=== PATIENT | male | born 1970 | race Caucasian/White ===

== ENCOUNTER 2016-07-01 15:07 | Emergency (ER) | payer OTHER ==
--- NOTE | ~2016-07-01 | CR93 ---
[facility] A Service of [facility] RADIOLOGY TEXT RESULTS PATIENT: HOLLAND RITTER LOCATION: SED : 74 UNIT #: [id number] AGE: [address]: Tracy Fine APRN SEX: M ORDER DR: [id number] [address] [address] [id number] E MR#: [id number] Acc #: [id number] NAME: HOLLAND RITTER : 1970 SEX: M STUDY DATE/TIME: 07/01/2016 14:57 UNIT: SED ROOM: STUDY DESCRIPTION: CR Elbow Min 3 Views Lt Attending Physician: Tracy Fine A.P.R.N. Ordering Physician: Tracy Min A.P.R.N. Primary Care Physician: No Primary Care Physician MEDICAL IMAGING REPORT This report is preliminary unless electronic signature is present. EXAM Left elbow, 3 views. HISTORY Fell last night, hitting curb with elbow. FINDINGS 3 views are submitted. The exam is limited by patient's inability to position the arm. There is a fracture through the olecranon. It passes transversely. It is distracted by 5 mm. There appears to be an associated fracture through the volar aspect of the olecranon, and this appears to be comminuted and intraarticular. In addition, the patient has a fracture of the radial head. There is a large joint effusion. Distal humerus appears intact. CONCLUSION Comminuted intraarticular fracture of the olecranon. Fracture of the radial head. Large joint effusion. Dictated by... Brown Henry M.D. THIS IS AN ELECTRONICALLY VERIFIED REPORT Brown Henry M.D. at 07/03/2016 12:00 PM MICHAEL/jayy TD: 07/01/2016 17:17 JOB #: [id number] [facility] A Service of [facility] RADIOLOGY TEXT RESULTS PATIENT: HOLLAND RITTER LOCATION: SED : 74 UNIT #: [id number] AGE: [address]: Tracy Fine APRN SEX: M ORDER DR: MEDICAL IMAGING REPORT Page 1 of 1
[~2016-07-01 15:07] MED LIST: FLEXERIL PO; KETOPROFEN PO; KLONOPIN PO; LORTAB 10/500 T1 TAB PO; NORCO 5/325 TAB1 TAB PO; PERCOCET5/325 PO
[2016-07-04] MEDS ORDERED: NO MEDICATIONS (15:11)
[2016-07-09] MEDS ORDERED: PERCOCET 7.5-31 EACH PO (09:07)
== END 2016-07-01 17:43 | disposition home or self-care (01) ==
LOC: SED 15:07
DX: S52.032A Displaced fracture of olecranon process with intraarticular extension of left ulna, initial encounter for closed fracture (principal); S52.122A Displaced fracture of head of left radius, initial encounter for closed fracture; F17.210 Nicotine dependence, cigarettes, uncomplicated; W18.39XA Other fall on same level, initial encounter
CPT/HCPCS: 29105; 29515; 73080; 99283

== ENCOUNTER → 2016-07-07 | Outpatient (CLI) | payer OTHER ==
[~2016-07-07] MED LIST changes: +NO MEDICATIONS; +PERCOCET 7.5-31 EACH PO
--- NOTE | ~2016-07-07 | CT127 ---
[facility] A Service of [facility] RADIOLOGY TEXT RESULTS PATIENT: HOLLAND RITTER [facility] UNIT #: [id number] AGE: [address]: Julio Rivera MD SEX: M ORDER DR: [id number] [facility]. [place], [place] [address] [id number] O MR#: [id number] Acc #: [id number] NAME: HOLLAND RITTER : 1970 SEX: M STUDY DATE/TIME: 07/07/2016 11:20 UNIT: [facility] ROOM: STUDY DESCRIPTION: CT Upper Ext Lt Wo Cont Attending Physician: Julio Rivera M.D. Referring Physician: Julio Rivera M.D. Ordering Physician: Julio Rivrea M.D. Primary Care Physician: No Primary Care Physician MEDICAL IMAGING REPORT This report is preliminary unless electronic signature is present EXAM CT left elbow HISTORY A 45-year-old male fell 06/30/2016 fracturing left olecranon left radial neck as well as a coronoid process fracture. Preoperative evaluation. COMPARISON Left elbow films 07/01/[address] exam was performed with one or more of the following radiation dose reduction techniques: automatic exposure control, adjustment of mA and/or kV according to patient size, and iterative reconstruction. FINDINGS Thin section axial images performed through the left elbow with multiplanar reconstructed images reviewed at a workstation. Examination demonstrates a comminuted mildly angulated intraarticular fracture of the olecranon. No significant loss of congruity of the ulnar notch. Mild apex dorsal angulation of the olecranon fracture. There is a transverse fracture through the base of the coronoid process of the ulna. This fracture appears mildly comminuted. There is an impacted fracture of the radial neck primarily along the lateral margin of the radial neck. There is a sizeable fragment within the lateral aspect the elbow joint measuring close to a centimeter. The exact donor site not clearly identified. This lies adjacent to the humeral capitellum. No loss of integrity of the distal humerus. Moderate elbow effusion and generalized soft tissue swelling and edema about the elbow. [facility] A Service of [facility] RADIOLOGY TEXT RESULTS PATIENT: HOLLAND RITTER LOCATION: [facility] : 74 UNIT #: [id number] AGE: [address]: Julio Rivera MD SEX: M ORDER DR: The radial head articular surface remains intact. The radial neck fracture is impacted approximately 5 mm along its lateral margin. IMPRESSION 1. Minimally impacted radial neck fracture predominately along the lateral aspect of the radial neck with about 5 mm of impaction. No deformity of the radial head articular surface. 2. Mildly comminuted intraarticular fracture of the proximal olecranon with extension of the fracture into the ulnar notch but no loss of congruent of the ulnar notch. 3. Mildly comminuted minimally-displaced coronoid process fracture. 4. Sizable approximately 1 cm bone fragment within the lateral aspect of the elbow joint. Exact donor site not clearly identified but possibly arising from the ulna. Dictated by... Willian Palumbo M.D. THIS IS AN ELECTRONICALLY VERIFIED REPORT Willian Palumbo M.D. at 07/07/2016 7:35 PM Edmund TD: 07/07/2016 19:22 JOB #: [id number] MEDICAL IMAGING REPORT Page 1 of 1 COPY
== END | disposition home or self-care (01) ==
LOC: CCAT 10:01
DX: Z01.818 Encounter for other preprocedural examination (principal); S52.032A Displaced fracture of olecranon process with intraarticular extension of left ulna, initial encounter for closed fracture; S52.132A Displaced fracture of neck of left radius, initial encounter for closed fracture; S42.132A Displaced fracture of coracoid process, left shoulder, initial encounter for closed fracture
CPT/HCPCS: 73200

== ENCOUNTER → 2016-07-09 | Day surgery (SDC) | payer OTHER ==
--- NOTE | ~2016-07-09 | OR ---
Unit #: [id number] #: [id number] Patient: HOLLAND RITTER [id number] [address] [address] [id number] O MR#: [id number] NAME: HOLLAND RITTER ROOM: Date of Procedure: 07/09/2016 Admission Date: 07/09/2016 Surgeon: Julio Rivera M.D. : 1970 Attending Physician: Julio Rivera M.D. Referring Physician: Julio Rivera M.D. OPERATIVE REPORT PREOPERATIVE DIAGNOSES 1. Left olecranon fracture. 2. Left radial neck fracture. 3. Left coronoid fracture. POSTOPERATIVE DIAGNOSES 1. Left olecranon fracture. 2. Left radial neck fracture. 3. Left coronoid fracture. PROCEDURES PERFORMED 1. Open reduction and internal fixation of left olecranon fracture. 2. Examination under anesthesia with subsequent closed treatment of left radial neck fracture. 3. Closed treatment of left coronoid fracture. 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 ANESTHESIA General with regional nerve block. ESTIMATED BLOOD LOSS 5 mL. COMPLICATIONS None apparent. IMPLANTS [employer] A[employer]S. short locking olecranon plate. INDICATIONS FOR PROCEDURE Holland is a 45-year-old gentleman, who sustained an injury to his left elbow during a ground level trip and fall over median. He was seen in the emergency department and subsequently further office for followup. He has a displaced olecranon fracture with coronoid fracture and associated radial neck fracture. Operative intervention was then discussed with the patient. He elected to proceed. DESCRIPTION OF PROCEDURE The patient was identified in the preoperative holding area. The operative site was marked. A regional block was performed. The patient Unit #: [id number] #: [id number] Patient: HOLLAND RITTER was brought to the operating room and placed supine on the operating table. A general anesthetic was induced. The left arm was identified. A tourniquet was applied. The arm was then positioned crossed over the chest on a padded [place] stand. The arm was prepped and draped in sterile fashion. The arm was exsanguinated and the tourniquet inflated. An incision was made over the posterior aspect of the elbow curving radially around the tip of the olecranon. Dissection was carried down through the subcutaneous tissues. The fracture site was identified and entered. There was hematoma fluid collection at the fracture site. This was evacuated. The fracture was then reduced with a large pointed tenaculum clamp. K-wires were advanced across the fracture in a crossing fashion for provisional stabilization. The reduction was checked and demonstrated anatomic reduction of the olecranon. The plate of the desired size was selected and then affixed proximally with a K-wire through a top-hat in the most proximal screw hole in the plate. A nonlocking screw was then drilled in an eccentric fashion in the oblong hole of the plate to apply compression to the fracture site. We then placed 2 more screws for a total of 3 screws in the intact shaft segment. One traversing K-wire was removed and a locking screw placed in the proximal olecranon fragment. The second locking screw was then placed in the olecranon fragment. Finally, the initial K-wire was removed and a locking screw placed so-called home-run screw, which was the most proximal screw hole position in the plate. Final images were obtained and demonstrated an anatomic reduction and fixation of the fracture. The coronoid fracture did not require fixation. The elbow was taken through range of motion was stable. The radial neck fracture was examined under fluoroscopy. The arm was taken through pronation and supination as well as flexion and extension. There was some slight impaction and valgus angulation of the fracture at the radial neck. However, this would have been sufficient to be treated nonoperatively, we were not already in the operating room. The fracture was stable with pronation and supination as well as flexion and extension. Therefore, we elected to avoid any further fixation of the radial neck as plate fixation would be a greater risk of causing potential hardware irritation and pain and was unnecessary to stabilize the fracture. The wound was then irrigated and closed in a layered fashion. A well-padded posterior splint was applied. DISPOSITION The patient was aroused from anesthesia and transported to recovery room in stable condition. Dictated by... Yenny Brooks/sondra TD: 07/10/2016 01:44 JOB #: [id number] Unit #: [id number] #: [id number] Patient: HOLLAND RITTER OPERATIVE REPORT Page 1 of 1 X Julio Rivera MD PROCEDURE OPERATIVE NOTE
--- NOTE | ~2016-07-09 | CR90 ---
[facility] A Service of [facility] RADIOLOGY TEXT RESULTS PATIENT: HOLLAND RITTER LOCATION: [facility] : 74 UNIT #: [id number] AGE: [address]: Julio Rivera MD SEX: M ORDER DR: [id number] [facility] [address] [place], [place] [address] [id number] O MR#: [id number] Acc #: [id number] NAME: HOLLAND RITTER : 1970 SEX: M STUDY DATE/TIME: 07/09/2016 12:50 UNIT: [facility] ROOM: STUDY DESCRIPTION: CR Elbow 2 View Lt Attending Physician: Julio Rivera M.D. Referring Physician: Julio Rivera M.D. Ordering Physician: Jluio Rivera M.D. Primary Care Physician: No Primary Care Physician MEDICAL IMAGING REPORT This report is preliminary unless electronic signature is present EXAM C-arm fluoroscopy with 6 permanent images of the left elbow, 07/09/2016. HISTORY ORIF left elbow fracture. FINDINGS C-arm fluoroscopy was provided for use in the operating room. 6 spot film radiographs of the left elbow were obtained in the anterior and lateral projections documenting placement of surgical plate and screws across the fracture involving the proximal ulna. The bones appear in anatomic alignment. 50 seconds of fluoroscopy time was utilized. Dictated by... Julio Hicks M.D. THIS IS AN ELECTRONICALLY VERIFIED REPORT Julio Hicks M.D. at 07/10/2016 8:08 AM Alexx TD: 07/09/2016 15:39 JOB #: [id number] MEDICAL IMAGING REPORT Page 1 of 1 COPY
== END | disposition home or self-care (01) ==
LOC: CSUR 08:48
DX: S52.022A Displaced fracture of olecranon process without intraarticular extension of left ulna, initial encounter for closed fracture (principal); S52.132A Displaced fracture of neck of left radius, initial encounter for closed fracture; S42.132A Displaced fracture of coracoid process, left shoulder, initial encounter for closed fracture; F17.210 Nicotine dependence, cigarettes, uncomplicated; Z79.82 Long term (current) use of aspirin; Z79.891 Long term (current) use of opiate analgesic; Z98.890 Other specified postprocedural states; W01.0XXA Fall on same level from slipping, tripping and stumbling without subsequent striking against object, initial encounter
CPT/HCPCS: 73070; 76001; C1713; J0360; J0690; J1100; J1170; J2250; J2270; J2795; J3010